=== PATIENT | male | born 2000 | race African-American/Black ===

== ENCOUNTER 2023-08-11 14:49 | Emergency (ER) | payer SELFPAY ==
[2023-08-11 14:55] VITALS: BP 122/85; PULSE 56; RESP 16; TEMP 36.6; O2SAT 100; BMI 17.4
--- NOTE | 2023-08-11 14:57 | ECG_ITS ---
[facility] Test Date: 2023-08-11 Pat Name: Pacheco Dee Department: Room: Gender: Male Employment Interviewer: : 2000 Requested By: Vamsi Anderson Order Number: [id number] Jh MD: Antonio Calvillo M.D. Measurements Intervals [place] Rate: 55 P: 73 [place]: 111 QRS: 86 QRSD: 93 T: 66 QT: 395 QTc: 379 Interpretive Statements SINUS BRADYCARDIA WITH SHORT [place] INTERVAL ST ELEVATION, PROBABLY EARLY REPOLARIZATION [ST ELEVATION WITH NORMALLY INFLECTED T-WAVE] No previous ECG available for comparison Electronically Signed On 08-12-2023 1:07:29 CDT by Antonio Calvillo M.D. [id number]
[2023-08-11 15:41] LABS: Basophils % 0.2 %; Eosinophils % 0.5 %; Hematocrit 48.1 % (37-53); Lymphocytes # 1.6 10^3/uL (0.8-4.8); Mean Corpuscular HGB Conc 33.5 g/dL (30-55); Mean Corpuscular Hemoglobin 30.3 pg (27-33); Mean Corpuscular Volume 90.6 fl (82-101); Mean Platelet Volume 11.2 fL (7.4-10.4); Monocytes # 0.4 10^3/uL (0.2-0.9); Monocytes % 7.3 %; Neutrophils # 3.96 10^3/uL (1.8-7.7); Neutrophils % 65.8 %; Nucleated Red Blood Cells % 0 %; Platelet Count 220 10^3/cmm (157-399); Red Blood Count 5.31 10^6/uL (3.85-5.65); Red Cell Distribution Width 11.9 % (12.1-15.1); White Blood Count 6.01 10^3/uL (3.29-11.43)
--- NOTE | 2023-08-11 15:47 | W.ED.ABDPA2 ---
HPI - Abdominal Pain General: Chief Complaint: Abdominal Pain Stated Complaint: Vomiting, Low heartrate Time Seen by Provider: 08/11/23 15:46 History of Present Illness: 23-year-old male patient comes in with nausea and vomiting starting at 8:00 this evening. Patient reported daily use of cannabinoids. Patient reports that last night he had ate [employer] prior to bed. Patient reports some chills and feeling of malaise. Patient appears unwell but not toxic. Patient appears in mild to no pain. Associated Symptoms: Reports chills, nausea and vomiting; Denies constipation, diarrhea and fever(s) Review of Systems General: Reports: 10 or more systems reviewed and unremarkable except in HPI and below Const: Reports: chills; Denies: fever(s) Card: Denies: chest pain Resp: Denies: dyspnea GI: Reports: nausea and vomiting; Denies: diarrhea or constipation : Denies: difficulty urinating Musc: Denies: back pain Skin/Breast: Denies: rash Physical Exam Const: COMMON NORMALS: alert HENMT: COMMON NORMALS: normocephalic HEAD & SCALP: normocephalic Neck/C-Spine: COMMON NORMALS: no meningeal signs Resp: COMMON NORMALS: normal respiratory effort Cardio: COMMON NORMALS: regular rate RATE: regular rate GI: COMMON NORMALS: Soft to palpation and non-tender PALPATION: Yes Soft to palpation : COMMON NORMALS: Yes no CVA tenderness BLADDER/KIDNEY EXAM: Yes no CVA tenderness Back/Pelvis: COMMON NORMALS: no CVA tenderness Extremity: COMMON NORMALS: no pedal edema Neuro: SENSORIUM/ORIENTATION: Yes alert MENINGEAL SIGNS: Yes no meningeal signs Skin: COMMON NORMALS: turgor normal GENERAL SKIN EXAM: turgor normal Course Vital Signs: Vital signs: Vital Signs Temperature 97.8 F 08/11/23 14:55 Pulse Rate 56 L 08/11/23 14:55 Respiratory Rate 16 08/11/23 14:55 Blood Pressure 122/85 08/11/23 14:55 Pulse Oximetry 100 08/11/23 14:55 Oxygen Delivery Me thod Room Air 08/11/23 14:55 MDM - Abdominal Pain Medical Decision Making Patient came in today due to persistent nausea and vomiting since 8:00 this morning. Patient appears unwell. Patient appears nontoxic. Patient appears in mild pain. On exam abdomen soft with some mild tenderness. No rebound tenderness or guarding is noted. No flank pain is noted. Vital signs are normal. Differential diagnosis includes but not limited to gastroenteritis, cannabinoid hyperemesis syndrome, viral syndrome, dehydration. After 1 L of IV fluids with 10 mg of Reglan, and 12-1/2 mg of Benadryl patient had significant improvement of symptoms. I believe patient probably had an episode of hyperemesis syndrome secondary to cannabinoid use. Recommended decreasing use of cannabis. Patient was written for some Reglan to use as needed for further nausea and vomiting. Patient reported understanding of care plan and need for follow-up or return to the ER for worsening symptoms. Lab Data 08/11/23 15:22 08/11/23 15:22 Labs/Radiology: Laboratory Results WBC 6.01 10^3/uL (3.29-11.43) 08/11/23 15: RBC 5.31 10^6/uL (3.85-5.65) 08/11/23 15: Hgb 16.10 g/dL (11.27-16.99) 08/11/23 15: Hct 48.1 % (37-53) 08/11/23 15: MCV 90.6 fl (82-101) 08/11/23 15: MCH 30.3 pg (27-33) 08/11/23 15: MCHC 33.5 g/dL (30-55) 08/11/23 15:22 RDW 11.9 % (12.1-15.1) L 08/11/23 15: Plt Count 220 10^3/cmm (157-399) 08/11/23 15: MPV 11.2 fL (7.4-10.4) H 08/11/23 15: Neut % (Auto) 65.8 % 08/11/23 15: Lymph % (Auto) 26.0 % 08/11/23 15: Glades % (Auto) 7.3 % 08/11/23 15: Eos % (Auto) 0.5 % 08/11/23 15: Baso % (Auto) 0.2 % 08/11/23 15: Neut # (Auto) 3.96 10^3/uL (1.8-7.7) 08/11/23 15:22 Lymph # (Auto) 1.6 10^3/uL (0.8-4.8) 08/11/23 15:22 Glades # (Auto) 0.4 10^3/uL (0.2-0.9) 08/11/23 15:22 Eos # (Auto) 0.0 10^3/uL (0.0-0.8) 08/11/23 15:22 Baso # (Auto) 0.0 10^3/uL (0.0-0.1) 08/11/23 15:22 Nucleated RBC % (auto) 0 % 08/11/23 15:22 Nucleated RBCs # 0.0 /100WBC 08/11/23 15:22 Sodium 141 mmol/L (136-145) 08/11/23 15:22 Potassium 3.7 mmol/L (3.5-5.1) 08/11/23 15:22 Chloride 100 mmol/L (98-107) 08/11/23 15:22 Carbon Dioxide 29 mmol/L (22-29) 08/11/23 15:22 Anion Gap 15.7 (5-19) 08/11/23 15:22 BUN 11 mg/dL (6-20) 08/11/23 15:22 Creatinine 0.7 mg/dL (0.7-1.2) 08/11/23 15:22 GFR Calculation 167.6 mL/min (90-130) H 08/11/23 15:22 Glucose 110 mg/dL (65-115) 08/11/23 15:22 Calculated Osmolality 292 mOsm/kg (285-295) 08/11/23 15:22 Calcium 9.9 mg/dL (8.5-10.5) 08/11/23 15:22 Total Bilirubin 0.4 mg/dL (0.15-1.2) 08/11/23 15:22 AST 51 U/L (0-40) H 08/11/23 15:22 ALT 56 U/L (0-41) H 08/11/23 15:22 Alkaline Phosphatase 79 U/L (40-130) 08/11/23 15:22 Total Protein 7.9 g/dL (6.6-8.7) 08/11/23 15:22 Albumin 5.1 g/dL (3.5-5.2) 08/11/23 15:22 Globulin 2.8 g/dL (1.3-4.6) 08/11/23 15:22 Lipase 28 U/L (13-60) 08/11/23 15:22 No radiology studies performed this visit EKG Data EKG 1: EKG interpretation date: 08/11/23 EKG interpretation time: 16:56 Prior EKG tracings: not available for review Interpretation: EKG shows a sinus rhythm with a regular rate at 55 bpm. Discharge Plan Discharge Patient Disposition: Home Clinical Impression: Pain associated with hyperemesis Condition: Stable Prescriptions: New metoclopramide HCl 10 mg tablet 10 mg PO Q6H PRN (Reason: nausea and vomiting) Qty: 7 0RF Discharge Orders: Discharge ED (Routine); Ordered 08/11/23 Ordered By: Vamsi العلي Discharge Diet: Usual diet Discharge Activity: Increase activity as tolerated Patient Instructions: Acute Nausea and Vomiting (ED) Activity Restrictions/Additional Instructions: Home and rest. Stay on a clear liquid diet for the next 12 to 24 hours. Then increase diet as tolerated. Avoid the use of marijuana for the next 24 hours. Follow-up with primary care as needed. Return to ED for worsening symptoms such as high fever greater than 100.4, blood in vomit or stool, or new concerns. Coding Level of Care Code ED [facility] for Yvonne Song
[2023-08-11 16:05] LABS: Alanine Aminotransferase 56 U/L (0-41); Albumin Level 5.1 g/dL (3.5-5.2); Alkaline Phosphatase 79 U/L (40-130); Anion Gap 15.7 (5-19); Aspartate Amino Transferase 51 U/L (0-40); Blood Urea Nitrogen 11 mg/dL (6-20); Calcium 9.9 mg/dL (8.5-10.5); Carbon Dioxide 29 mmol/L (22-29); Chloride 100 mmol/L (98-107); Globulin 2.8 g/dL (1.3-4.6); Glomerular Filtration Rate 167.6 mL/min (90-130); Glucose 110 mg/dL (65-115); Lipase 28 U/L (13-60); Osmolality Calculated 292 mOsm/kg (285-295); Potassium 3.7 mmol/L (3.5-5.1); Sodium 141 mmol/L (136-145); Total Bilirubin 0.4 mg/dL (0.15-1.2); Total Protein 7.9 g/dL (6.6-8.7)
[2023-08-11] MEDS: sodium chloride 0.9% 1,000 ML 999 ML IV (16:32)
[2023-08-11] MEDS: metoclopramide 5 mg/mL SDV 2 mL 10 MG IVP (16:33)
[2023-08-11] MEDS: diphenhydrAMINE 50 mg/mL SDV 1mL 12.5 MG IVP (16:34)
[2023-08-11] MEDS: ketorolac 30 mg/mL INJ 15 MG IVP (17:34)
[2023-08-11 17:40] VITALS: PULSE 57; RESP 16; O2SAT 97
[2023-08-11 17:41] VITALS: O2SAT 98
== END 2023-08-11 17:42 | disposition home or self-care (01) ==
PROVIDERS: Emergency Provider Nurse Practitioner Family
DX: R11.10 Vomiting, unspecified (principal); R10.9 Unspecified abdominal pain
CPT/HCPCS: 36415; 80053; 83690; 85025; 93005; 96361; 96374; 96375; 99284; J1200; J1885; J2765; J7030